=== PATIENT | female | born 1945 | race African-American/Black ===

== ENCOUNTER 2018-04-06 10:45 | Emergency (ER) | payer OTHER ==
[~2018-04-06] VITALS: Ht 162.6 cm; Wt 77.1 kg
[~2018-04-06 10:45] MED LIST: ACTOS; ACTOS 30 MG TAB30 MG; ACTOS15 MG PO; AMARYL4 MG PO; BENTYL20 MG PO; CLEOCIN HCL300 MG PO; DIABETA; DRAMAMINE50 M1 PO; GILPIZIDE; JANUMET 50-5001 EACH PO; LANTUSSOLASTAR SUBQ; METFORMIN; MULTIVITAMINS; NORCO 5-325 TA1 EACH PO; OMEPRAZOLE40 MG PO; PERCOCET 5-3251 EACH PO; PROVENTIL17 G1 IH; STOMACH MED; ULTRAM 50MG TAB50 MG PO; VALIUM2 MG PO; VALIUM5 MG PO; VERAPAMIL E.R240 M1 PO; XYZAL5 MG PO; ZOFRAN ODT4 MG PO; ZYRTEC
[2018-04-06] MEDS ORDERED: NORFLEX100 MG PO (11:19)
[2018-04-06] MEDS ORDERED: MOBIC15 MG PO (11:19)
[2018-04-06] MEDS ORDERED: PHENERGAN 25 MG25 M1 PO (11:19)
[2018-04-06 11:25] VITALS: BP 155/85
== END 2018-04-06 11:26 | disposition home or self-care (01) ==
LOC: ER 10:45
DX: S16.1XXA Strain of muscle, fascia and tendon at neck level, initial encounter (principal); M43.6 Torticollis; E11.9 Type 2 diabetes mellitus without complications; I10 Essential (primary) hypertension; Z88.0 Allergy status to penicillin; Z88.2 Allergy status to sulfonamides; Z88.8 Allergy status to other drugs, medicaments and biological substances; X50.0XXA Overexertion from strenuous movement or load, initial encounter; Y93.89 Activity, other specified; Y92.096 Garden or yard of other non-institutional residence as the place of occurrence of the external cause; Y99.8 Other external cause status